=== PATIENT | male | born 1965 | race Caucasian/White ===

== ENCOUNTER 2016-12-21 00:41 | Emergency (ER) | payer BC ==
[2016-12-21] MEDS ORDERED: HYDROXYUREA (01:15)
[2016-12-21] MEDS ORDERED: ANTI-DEPRESSANT (01:16)
== END 2016-12-21 04:31 ==
LOC: EDMED 00:41
DX: S93.401A Sprain of unspecified ligament of right ankle, initial encounter (principal); F32.9 Major depressive disorder, single episode, unspecified; Z79.899 Other long term (current) drug therapy; X50.1XXA Overexertion from prolonged static or awkward postures, initial encounter; Y93.39 Activity, other involving climbing, rappelling and jumping off; Y99.8 Other external cause status